=== PATIENT | male | born 1965 | race Caucasian/White ===

== ENCOUNTER 2020-06-27 13:34 | Outpatient (RCR) | payer OTHER, SELFPAY ==
[2013-06-04 17:02] VITALS: BMI 27.2
[2020-06-27] MEDS: COVID-19 VACC, MRNA(PFIZER)/PF 30 MCG/0.3 ML SYRINGE IM (15:07)
[2020-07-18] MEDS: COVID-19 VACC, MRNA(PFIZER)/PF 30 MCG/0.3 ML SYRINGE IM (14:52)
== END 2020-06-27 23:59 ==
LOC: IMMUN 13:34
PROVIDERS: Visit Provider Family Medicine
DX: Z23 Encounter for immunization (principal)
CPT/HCPCS: 0001A; 0002A; 91300

== ENCOUNTER 2022-04-23 16:17 | Emergency (ER) | payer OTHER, SELFPAY ==
[2022-04-23 16:18] VITALS: BP 146/63; PULSE 75; RESP 17; TEMP 35.8; O2SAT 100; BMI 27.4
--- NOTE | 2022-04-23 16:34 | EX.ED.DYSGE1 ---
HPI History of Present Illness Chief Complaint: Cellulitis Narrative Narrative: Patient presents with redness moving up his right arm. Patient states he was working on Tuesday and got a blister on the tip of his right index finger. At the end of the day he used a needle to open this up and drained the blister. He states nothing had poked into him. It was no nail or drill bit or anything like that. It was just a blister. He opened it up. On Tuesday it started to get a little bit red. Today's notes that there is redness up to the dorsum of his hand. In his right index finger is a little bit swollen. He is not having nausea vomiting. He does not have a fever. He is eating and drinking normally. He can move his finger well. Patient initially stated he really had no medical problems. 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 He is taking these medicines. His blood pressure is controlled he has no chest pain or symptoms related to the dissection. He has no history of diabetes. He is on no immunosuppressive drugs. PFSH PFS Home Medications cephalexin 500 mg capsule 500 mg PO Q6 #40 caps 04/23/22 [Rx Last Taken Unknown] sulfamethoxazole 800 mg-trimethoprim 160 mg tablet (Bactrim DS) 1 tab PO BID #20 tabs 04/23/22 [Rx Last Taken Unknown] Allergy/AdvReac Type Severity Reaction Status Date / Time No Known Allergies Allergy Verified 04/23/22 16:17 Social History Smoking Status: Former smoker ROS ROS ED Constitutional Constitutional ED: Denies fever(s) or sweats Cardiovascular Cardiovascular: Denies chest pain, palpitations or racing heartbeat Respiratory/Chest Respiratory/Chest: Denies cough or dyspnea Gastrointestinal Gastrointestinal: Denies nausea or vomiting Genitourinary Genitourinary ED: Denies dysuria Musculoskeletal Musculoskeletal: Denies arthralgias or myalgias Integumentary Reports rash and other Details: See history of present illness peer Neurologic Neurologic: Denies paresthesias or weakness Endocrine Endocrinology: Denies polydipsia or polyuria Hematologic/Lymphatic Hematologic/Lymphatic: Denies lymphadenopathy Allergic/Immunologic Allergic/Immunologic ED: Denies urticaria EXAM Physical Exam Const Vital Signs: 04/23/22 16:18 Temperature 96.4 F L Temperature Source Temporal Pulse Rate 75 Respiratory Rate 17 Blood Pressure 146/63 H Blood Pressure Mean 90 Pulse Ox 100 Oxygen Delivery Method Room Air Positive well nourished and well developed Constitutional Narrative: Patient sitting comfortably in the blood. He is holding his phone and typing on it. No acute distress. No difficulty moving hand or finger. General Appearance ED: well developed and NAD HEENT Reports moist mucous membranes Eyes General Eye ED: Negative for scleral icterus Neck supple and no JVD Resp normal respiratory effort and clear to auscultation bilaterally Cardio regular rate, regular rhythm and no murmurs GI normal to inspection, nondistended, normoactive bowel sounds Palpation: soft; Negative for tender Extremity Extremity Narrative: Patient does have some mild swelling of his right index finger. There is a open area consistent with his punctured blister at the very tip of the right index. But he can move the finger well. He does not hold it stiffly in 1 position. There is no tenderness along the tendon sheath of the finger nor into the hand. However, on the dorsum he does have a little bit of erythema streaking up and goes just a little bit proximal to his right wrist. This is consistent with some lymphangitis. I do not feel any proximal lymphadenopathy. Neuro Sensorium / Orientation: alert Psych mental status grossly normal Skin Skin Narrative: See extremity exam as above. MDM MDM MDM Narrative Medical decision making narrative: I discussed the findings with the patient. He does not have any of Knavel's findings. I think he can be treated as an outpatient. Since there is no puncture or trauma, I did not do x-rays of the hand. I do not think x-rays are going to head to this. Likewise, the patient is not diabetic, having nausea vomiting fevers or chills and I do not think blood work is going to change his therapy. I will get him started on antibiotics here. It was explained he needs to get these filled today and take these as prescribed. If he develops pain, swelling, pain with motion, fevers, vomiting or other concerns he needs to return. Discharge Plan Triage Chief Complaint: Cellulitis ED Provider: Giovany Hemphill Dx/Rx/DC Orders Clinical Impression: Abrasion of right index finger with infection, Lymphangitis of upper extremity Instructions: Cellulitis Dc Prescriptions: New cephalexin [cephalexin] 500 mg capsule 500 mg PO Q6 Qty: 40 0RF sulfamethoxazole-trimethoprim [Bactrim DS] 800-160 mg tablet 1 tab PO BID Qty: 20 0RF Primary Care Provider: Lauri Nielsen Referrals: Lauri Nielsen MD [Primary Care Provider] - 1-2 Days if not improving Disposition Disposition: Home, Self Care
[2022-04-23] MEDS: Smz/Tmp Ds Tablet 1 TABLET PO (16:59)
[2022-04-23] MEDS: Cephalexin 250 MG Capsule 500 MG PO (16:59)
== END 2022-04-23 17:05 | disposition home or self-care (01) ==
LOC: ED 16:45
PROVIDERS: Emergency Provider Emergency Medicine; PCP Family Medicine; Visit Provider Emergency Medicine
DX: S60.410A Abrasion of right index finger, initial encounter (principal); L03.011 Cellulitis of right finger; Z87.891 Personal history of nicotine dependence; X58.XXXA Exposure to other specified factors, initial encounter
CPT/HCPCS: 99283